=== PATIENT | male | born 1970 | race Caucasian/White ===

== ENCOUNTER → 2017-08-30 | Outpatient (CLI) | payer OTHER ==
[~2017-08-30] VITALS: Ht 177.8 cm; Wt 99.3 kg
[~2017-08-30] MED LIST: ATORVASTATIN CA20 MG PO; LISINOPRIL-HCT1 EAC3 PO; PANTOPRAZOLE SO40 MG PO
[2017-08-30 14:36] LABS: HEMATOCRIT 42.5 % (38.0-50.0); MCH 28.8 PG (29.0-34.0); MCHC 35.3 G/DL (30.0-36.0); MCV 81.7 FL (86-99); MEAN PLAT.VOLUME 8.8 uM^3 (9.0-12.4); PLATELET COUNT 208 K/uL (156-360); RBC DIS.WIDTH-CV 13.3 % (11.8-14.6); RBC DIS.WIDTH-SD 38.8 % (39-53); WHITE BLOOD COUNT 7.8 K/uL (4.1-10.2)
[2017-08-30 14:51] LABS: INTER. NORMALIZED RATIO 1.1; PROTHROMBIN TIME 12.4 SEC (10.2-12.9)
[2017-08-30 14:53] LABS: PTT 29.3 SEC (25-37)
== END | disposition home or self-care (01) ==
LOC: AMB 13:55
PROVIDERS: Internal Medicine Gastroenterology
DX: R91.8 Other nonspecific abnormal finding of lung field (principal); R59.0 Localized enlarged lymph nodes; I10 Essential (primary) hypertension; K21.9 Gastro-esophageal reflux disease without esophagitis
CPT/HCPCS: 71010; 85027; 85610; 85730; 88305; J0461; J2175; J2250; J2310; J2550; J3010